=== PATIENT | male | born 1960 | race Caucasian/White ===

== ENCOUNTER 2018-12-12 13:33 | Inpatient (IN) ==
[2018-12-12] MEDS ORDERED: methylPREDNISolone SOD SUC 125 MG/2 ML VIAL IV STA (13:41)
[2018-12-12] MEDS ORDERED: ALBUTEROL 2.5 MG/3 ML NEB RESP TX SCH (14:00)
[2018-12-12 14:18] LABS: Basophils # 0.1 10*3/uL (0.0-0.2); Basophils % 0.5 % (0.0-0.8); Eosinophils # 0.2 10*3/uL (0.0-0.87); Eosinophils % 1.9 % (0.00-10.9); Hematocrit 52.6 VOL% (42.0-52.0); Hemoglobin 15.6 GM/DL (14.0-18.0); Immature Granulocytes % 0.5 %; Immature Granulocytes Absolute 0.05 #; Lymphocytes # 1.8 10*3/uL (1.4-4.0); Lymphocytes % 18.4 % (21.2-54.2); Mean Corpuscular HGB Conc 29.7 GM/DL (32-36); Mean Corpuscular Volume 96.9 FL (87-102); Mean Platelet Volume 11.1 FL (9.6-12.0); NRBC # 0.03 10*3/uL; Neutrophils % 68.7 % (38.7-73.9); Platelet Count 200 T/CUMM (130-400); Red Blood Count 5.43 MC/CUMM (3.8-5.5); Red Cell Distribution Width 15.7 % (9.3-17.3); White Blood Count 9.7 T/CUMM (4-12)
[2018-12-12 14:26] LABS: INR 1.1; PT Patient Result 11.4 SECS; Partial Thromboplastin Time 23.5 SECS (0-40)
[2018-12-12 14:39] LABS: Albumin 3.2 G/DL (3.4-5.0); Bilirubin,Total 0.5 MG/DL (0.2-1.0); Calcium 8.5 MG/DL (8.5-10.1); Total Protein 6.6 G/DL (6.4-8.3)
[2018-12-12] MEDS ORDERED: FUROSEMIDE 40 MG/4 ML VIAL IV STA (14:46)
[2018-12-12] MEDS ORDERED: ASPIRIN CHEW 81 MG TABLET PO STA (14:55)
[2018-12-12] MEDS ORDERED: ENOXAPARIN 120 MG/0.8 ML SYRINGE SUBCUT STA (14:55)
[2018-12-12] MEDS ORDERED: ACETAMINOPHEN 325 MG TABLET PO PRN (14:56)
[2018-12-12] MEDS ORDERED: PROMETHAZINE 25 MG/1 ML VIAL IM PRN (14:56)
[2018-12-12] MEDS ORDERED: ONDANSETRON 4 MG/2 ML VIAL IV PRN (14:56)
[2018-12-12] MEDS ORDERED: ENOXAPARIN 40 MG/0.4 ML SYRINGE SUBCUT SCH (15:00)
[2018-12-12] MEDS ORDERED: MAGNESIUM SULF RIDER 4 GM in PREMIX 1 EACH IV PRN (15:02)
[2018-12-12] MEDS ORDERED: MAGNESIUM SULF RIDER 2 GM in PREMIX 1 EACH IV PRN (15:02)
[2018-12-12 15:25] LABS: Apearance,Urine CLEAR (Clear); Bilirubin,Urine Negative (Negative); Blood, Urine Negative (Negative); Glucose,Urine (UA) Negative (Negative); Hyaline Casts,Urine 8 /LPF (0-3); Ketones,Urine Negative (Negative); Mucus,Urine Occasional /LPF (Occasional); Nitrite,Urine Negative (Negative); Protein,Urine 100 MG/DL; Urine Color Yellow (Yellow); Urine Specific Gravity 1.023 (1.001-1.035)
[2018-12-12 15:29] LABS: Barbiturates Screen,Urine Negative (Negative); Benzodiazepines Screen,Urine Negative (Negative); Cannabinoid Screen,Urine Negative (Negative); Opiate Screen,Urine Negative (Negative); Phencyclidine Screen,Urine Negative (Negative)
[2018-12-12] MEDS ORDERED: GLUCAGON 1 MG VIAL IM PRN (15:38)
[2018-12-12] MEDS ORDERED: DEXTROSE 10% 25 GM/250 ML BAG IV PRN (15:38)
[2018-12-12] MEDS: PANTOPRAZOLE 40 MG TABLET PO SCH (16:43)
[2018-12-12] MEDS: LEVOFLOXACIN INJ 750 MG in PREMIX 1 EACH IV SCH (16:59)
[2018-12-12 17:31] LABS: Troponin I 0.188 NG/ML (0.00-0.045)
[2018-12-12] MEDS: ASPIRIN EC 81 MG TABLET PO SCH (17:55)
[2018-12-12] MEDS: glyBURIDE 5 MG TABLET PO SCH (17:55)
[2018-12-12] MEDS: INSULIN LISPRO 100 UNIT/ML SUBCUT SCH ×2 (17:56→21:50)
[2018-12-12] MEDS ORDERED: metOLazone 5 MG TABLET PO SCH (18:00)
[2018-12-12] MEDS: POTASSIUM CHLORIDE 20 MEQ TABLET PO SCH (18:07)
[2018-12-12] MEDS: metOLazone 5 MG TABLET PO SCH ×2 (18:08→18:58)
[2018-12-12] MEDS: FUROSEMIDE 40 MG/4 ML VIAL IV SCH (18:08)
[2018-12-12] MEDS: ALBUTEROL/IPRATROPIUM 3 ML NEB RESP TX SCH (20:03)
[2018-12-12] MEDS: METOPROLOL TARTRATE 50 MG TABLET PO SCH (21:48)
[2018-12-12] MEDS: SIMVASTATIN 10 MG TABLET PO SCH (21:48)
[2018-12-12 22:55] LABS: Troponin I 0.136 NG/ML (0.00-0.045)
[2018-12-13] MEDS: ALBUTEROL/IPRATROPIUM 3 ML NEB RESP TX SCH ×4 (01:10→19:25)
[2018-12-13 04:02] LABS: Albumin 2.9 G/DL (3.4-5.0); Bilirubin,Total 0.6 MG/DL (0.2-1.0); Calcium 8.3 MG/DL (8.5-10.1); Osmolality,Calculated 283.8 MOS/KG (273-304); Risk Ratio 3.59; Total Protein 6.9 G/DL (6.4-8.3); VLDL CHOLESTEROL 28.6 MG/DL
[2018-12-13 04:04] LABS: Basophils % 0.1 % (0.0-0.8); Hemoglobin 16.3 GM/DL (14.0-18.0); Immature Granulocytes % 0.4 %; Immature Granulocytes Absolute 0.04 #; Lymphocytes # 0.8 10*3/uL (1.4-4.0); Lymphocytes % 8.1 % (21.2-54.2); Mean Corpuscular HGB Conc 29.4 GM/DL (32-36); Mean Platelet Volume 11.2 FL (9.6-12.0); Monocytes % 3.8 % (1.7-12.7); NRBC # 0.03 10*3/uL; Neutrophils % 87.6 % (38.7-73.9); Platelet Count 201 T/CUMM (130-400); Red Blood Count 5.77 MC/CUMM (3.8-5.5); Red Cell Distribution Width 15.5 % (9.3-17.3); White Blood Count 9.5 T/CUMM (4-12)
[2018-12-13 04:07] LABS: Hematocrit 55.4 VOL% (42.0-52.0)
[2018-12-13 05:18] LABS: Troponin I 0.101 NG/ML (0.00-0.045)
[2018-12-13] MEDS: INSULIN LISPRO 100 UNIT/ML SUBCUT SCH ×4 (08:36→22:51)
[2018-12-13] MEDS: POTASSIUM CHLORIDE 20 MEQ TABLET PO SCH (08:38)
[2018-12-13] MEDS: metOLazone 2.5 MG TABLET PO SCH (08:38)
[2018-12-13] MEDS: ASPIRIN EC 81 MG TABLET PO SCH (08:38)
[2018-12-13] MEDS: METOPROLOL TARTRATE 50 MG TABLET PO SCH ×2 (08:38→22:15)
[2018-12-13] MEDS: glyBURIDE 5 MG TABLET PO SCH (08:38)
[2018-12-13] MEDS: FUROSEMIDE 40 MG/4 ML VIAL IV SCH ×2 (08:39→16:39)
[2018-12-13] MEDS: PANTOPRAZOLE 40 MG TABLET PO SCH (08:39)
[2018-12-13] MEDS ORDERED: DIAZEPAM 5 MG TABLET PO ONE (09:34)
[2018-12-13] MEDS ORDERED: POTASSIUM CHLORIDE RIDER 10 MEQ in PREMIX 1 EACH IV PRN (09:34)
[2018-12-13] MEDS ORDERED: diphenhydrAMINE CAP 25 MG CAPSULE PO ONE (09:34)
[2018-12-13] MEDS ORDERED: MAGNESIUM SULF RIDER 2 GM in PREMIX 1 EACH IV PRN (09:34)
[2018-12-13] MEDS: ENOXAPARIN 120 MG/0.8 ML SYRINGE SUBCUT SCH ×2 (10:35→22:15)
[2018-12-13] MEDS: LEVOFLOXACIN INJ 750 MG in PREMIX 1 EACH IV SCH (16:43)
[2018-12-13] MEDS: SIMVASTATIN 10 MG TABLET PO SCH (22:15)
[2018-12-13] MEDS: ASCORBIC ACID 500 MG TABLET PO SCH (22:15)
[2018-12-14] MEDS: ALBUTEROL/IPRATROPIUM 3 ML NEB RESP TX SCH ×4 (00:40→20:28)
[2018-12-14 04:58] LABS: Calcium 9.1 MG/DL (8.5-10.1)
[2018-12-14 05:24] LABS: Basophils # 0.1 10*3/uL (0.0-0.2); Basophils % 0.4 % (0.0-0.8); Eosinophils # 0.2 10*3/uL (0.0-0.87); Eosinophils % 1.5 % (0.00-10.9); Hematocrit 55.2 VOL% (42.0-52.0); Immature Granulocytes % 0.3 %; Immature Granulocytes Absolute 0.04 #; Lymphocytes # 2.4 10*3/uL (1.4-4.0); Lymphocytes % 20.7 % (21.2-54.2); Mean Corpuscular HGB Conc 30.1 GM/DL (32-36); Mean Platelet Volume 11.3 FL (9.6-12.0); Monocytes % 8.8 % (1.7-12.7); Neutrophils % 68.3 % (38.7-73.9); Platelet Count 213 T/CUMM (130-400); Red Blood Count 5.87 MC/CUMM (3.8-5.5); Red Cell Distribution Width 15.2 % (9.3-17.3); White Blood Count 11.4 T/CUMM (4-12)
[2018-12-14 05:26] LABS: Hemoglobin 16.6 GM/DL (14.0-18.0)
[2018-12-14] MEDS: INSULIN LISPRO 100 UNIT/ML SUBCUT SCH ×4 (08:30→20:28)
[2018-12-14] MEDS ORDERED: diphenhydrAMINE CAP 25 MG CAPSULE PO ONE (09:30)
[2018-12-14] MEDS ORDERED: DIAZEPAM 5 MG TABLET PO ONE (09:30)
[2018-12-14] MEDS: ASPIRIN EC 81 MG TABLET PO SCH (09:43)
[2018-12-14] MEDS: PANTOPRAZOLE 40 MG TABLET PO SCH (09:43)
[2018-12-14] MEDS: METOPROLOL TARTRATE 50 MG TABLET PO SCH ×2 (09:43→20:28)
[2018-12-14] MEDS: ENOXAPARIN 120 MG/0.8 ML SYRINGE SUBCUT SCH (09:43)
[2018-12-14] MEDS ORDERED: LIDOCAINE 1%/EPI INJ 20 ML VIAL ONE (12:47)
[2018-12-14] MEDS ORDERED: HEPARIN/NACL 0.9% 2 UNITS/ML 1,000 ML IV ONE (12:47)
[2018-12-14] MEDS ORDERED: MIDAZOLAM 2 MG/2 ML VIAL ONE (13:36)
[2018-12-14] MEDS ORDERED: fentaNYL 100 MCG/2 ML VIAL ONE (13:37)
[2018-12-14] MEDS: glyBURIDE 5 MG TABLET PO SCH (14:56)
[2018-12-14] MEDS: ASCORBIC ACID 500 MG TABLET PO SCH ×2 (14:56→20:28)
[2018-12-14] MEDS: POTASSIUM CHLORIDE 20 MEQ TABLET PO SCH (14:56)
[2018-12-14] MEDS: metOLazone 2.5 MG TABLET PO SCH (14:56)
[2018-12-14] MEDS: SODIUM CHLORIDE 0.9% 1,000 ML IV SCH ×3 (15:00→23:41)
[2018-12-14] MEDS: FUROSEMIDE 40 MG/4 ML VIAL IV SCH (15:41)
[2018-12-14] MEDS: LEVOFLOXACIN INJ 750 MG in PREMIX 1 EACH IV SCH (16:19)
[2018-12-14] MEDS: SIMVASTATIN 10 MG TABLET PO SCH (20:28)
[2018-12-15] MEDS: ALBUTEROL/IPRATROPIUM 3 ML NEB RESP TX SCH ×2 (02:09→07:27)
[2018-12-15 04:32] LABS: Basophils % 0.3 % (0.0-0.8); Eosinophils # 0.3 10*3/uL (0.0-0.87); Hematocrit 53.4 VOL% (42.0-52.0); Hemoglobin 16.5 GM/DL (14.0-18.0); Immature Granulocytes % 0.4 %; Immature Granulocytes Absolute 0.04 #; Lymphocytes # 1.5 10*3/uL (1.4-4.0); Lymphocytes % 16.3 % (21.2-54.2); Mean Corpuscular HGB Conc 30.9 GM/DL (32-36); Mean Platelet Volume 11.2 FL (9.6-12.0); Platelet Count 202 T/CUMM (130-400); Red Blood Count 5.62 MC/CUMM (3.8-5.5); Red Cell Distribution Width 14.9 % (9.3-17.3); White Blood Count 9.4 T/CUMM (4-12)
[2018-12-15 04:46] LABS: Calcium 8.8 MG/DL (8.5-10.1); Osmolality,Calculated 281.7 MOS/KG (273-304)
[2018-12-15] MEDS: SODIUM CHLORIDE 0.9% 1,000 ML IV SCH (04:51)
[2018-12-15] MEDS: INSULIN LISPRO 100 UNIT/ML SUBCUT SCH ×2 (08:52→12:19)
[2018-12-15] MEDS: POTASSIUM CHLORIDE 20 MEQ TABLET PO SCH (08:54)
[2018-12-15] MEDS: METOPROLOL TARTRATE 50 MG TABLET PO SCH (08:54)
[2018-12-15] MEDS: ASPIRIN EC 81 MG TABLET PO SCH (08:54)
[2018-12-15] MEDS: PANTOPRAZOLE 40 MG TABLET PO SCH (08:54)
[2018-12-15] MEDS: ASCORBIC ACID 500 MG TABLET PO SCH (08:55)
[2018-12-15] MEDS: metOLazone 2.5 MG TABLET PO SCH (08:55)
[2018-12-15] MEDS: glyBURIDE 5 MG TABLET PO SCH (08:55)
[2018-12-15] MEDS ORDERED: FUROSEMIDE 40 MG TABLET PO SCH (09:00)
[2018-12-15] MEDS ORDERED: CLOPIDOGREL 75 MG TABLET PO SCH (09:00)
[2018-12-15 13:08] VITALS: BP 121/62
== END 2018-12-15 14:44 | disposition home or self-care (01) | DRG 280 ==
LOC: EDUNIT# → EDBD → N.ED 13:33 → INTOOBSV 14:54 → N.EDINP 14:54 → N.TELEN 16:55
PROVIDERS: ADMIT Internal Medicine; ATTEND Internal Medicine